=== PATIENT | female | born 2000 | race Caucasian/White ===

== ENCOUNTER 2020-08-29 11:59 | Observation (INO) | payer OTHER ==
[2020-08-29 12:40] LABS: Appearance CLOUDY (CLEAR); Bacteria MANY /HPF (NEGATIVE); Bilirubin NEGATIVE (NEGATIVE); Blood NEGATIVE Ery/ul (0-5); Epithelial Cells RARE /HPF (FEW); Glucose NEGATIVE (NEGATIVE); Ketones NEGATIVE (NEGATIVE); Leukocyte Esterase TRACE (NEGATIVE); Mucus MODERATE /HPF (NEGATIVE); Nitrite NEGATIVE (NEGATIVE); Protein,Urine Dip 30 (Negative); Urobilinogen 2 mg/dL (0-1)
[2020-08-29 13:09] VITALS: BP 130/76; PULSE 104; O2SAT 97
== END 2020-08-29 13:30 | disposition home or self-care (01) ==
LOC: OB 11:59
PROVIDERS: ADMIT Obstetrics & Gynecology; ATTEND Obstetrics & Gynecology
DX: O24.419 Gestational diabetes mellitus in pregnancy, unspecified control (principal); Z3A.32 32 weeks gestation of pregnancy
CPT/HCPCS: 59025; 81001; 87086; G0378

== ENCOUNTER 2020-09-01 15:40 | Observation (INO) | payer OTHER ==
[2020-09-01 16:18] VITALS: BP 135/70; PULSE 99
== END 2020-09-01 16:35 | disposition home or self-care (01) ==
LOC: MED SURG 15:40 → UNDOADMOB 15:40 → UNDODISOB 16:35
PROVIDERS: ADMIT Obstetrics & Gynecology; ATTEND Obstetrics & Gynecology
DX: O24.419 Gestational diabetes mellitus in pregnancy, unspecified control (principal); Z3A.32 32 weeks gestation of pregnancy
CPT/HCPCS: 59025; G0378

== ENCOUNTER 2020-09-05 11:29 | Observation (INO) | payer OTHER ==
[2020-09-05 15:52] VITALS: BP 129/79; PULSE 99
== END 2020-09-05 16:00 | disposition home or self-care (01) ==
LOC: OB 11:29 → UNDOADMOB 11:29 → OB 15:11
PROVIDERS: ADMIT Obstetrics & Gynecology; ATTEND Obstetrics & Gynecology
DX: O24.419 Gestational diabetes mellitus in pregnancy, unspecified control (principal); Z3A.33 33 weeks gestation of pregnancy
CPT/HCPCS: 59025; G0378

== ENCOUNTER 2020-09-08 15:53 | Observation (INO) | payer OTHER ==
[2020-09-08 16:31] VITALS: BP 132/79; PULSE 88
== END 2020-09-08 16:50 | disposition home or self-care (01) ==
LOC: OB 15:53
PROVIDERS: ADMIT Obstetrics & Gynecology; ATTEND Obstetrics & Gynecology
DX: O24.419 Gestational diabetes mellitus in pregnancy, unspecified control (principal); Z3A.33 33 weeks gestation of pregnancy
CPT/HCPCS: 59025; G0378

== ENCOUNTER 2020-09-12 09:14 | Observation (INO) | payer OTHER ==
[2020-09-12 10:08] VITALS: BP 115/67; PULSE 96
== END 2020-09-12 10:25 | disposition home or self-care (01) ==
LOC: OB 09:14
PROVIDERS: ADMIT Obstetrics & Gynecology; ATTEND Obstetrics & Gynecology
DX: O24.419 Gestational diabetes mellitus in pregnancy, unspecified control (principal); Z3A.34 34 weeks gestation of pregnancy
CPT/HCPCS: 59025; G0378

== ENCOUNTER 2020-09-15 10:05 | Observation (INO) | payer OTHER ==
[2020-09-15 10:58] VITALS: BP 130/78; PULSE 115; O2SAT 99
== END 2020-09-15 10:55 | disposition home or self-care (01) ==
LOC: OB 10:05
PROVIDERS: ADMIT Obstetrics & Gynecology; ATTEND Obstetrics & Gynecology
DX: O24.319 Unspecified pre-existing diabetes mellitus in pregnancy, unspecified trimester (principal)
CPT/HCPCS: 59025; G0378

== ENCOUNTER 2020-09-19 10:05 | Observation (INO) | payer OTHER ==
[2020-09-19 10:50] VITALS: PULSE 95
[2020-09-19 11:07] VITALS: BP 116/56
== END 2020-09-19 11:00 | disposition home or self-care (01) ==
LOC: OB 10:05
PROVIDERS: ADMIT Obstetrics & Gynecology; ATTEND Obstetrics & Gynecology
DX: O24.414 Gestational diabetes mellitus in pregnancy, insulin controlled (principal); Z3A.34 34 weeks gestation of pregnancy
CPT/HCPCS: 59025; G0378

== ENCOUNTER 2020-09-20 12:42 | Observation (INO) | payer OTHER ==
[2020-09-20 13:19] VITALS: BP 128/78; PULSE 113
[2020-09-20 13:39] LABS: Appearance SLIGHTLY CLOUDY (CLEAR); Bacteria FEW /HPF (NEGATIVE); Bilirubin NEGATIVE (NEGATIVE); Blood NEGATIVE Ery/ul (0-5); Epithelial Cells RARE /HPF (FEW); Glucose NEGATIVE (NEGATIVE); Ketones NEGATIVE (NEGATIVE); Leukocyte Esterase NEGATIVE (NEGATIVE); Mucus SLIGHT /HPF (NEGATIVE); Nitrite NEGATIVE (NEGATIVE); Protein,Urine Dip NEGATIVE (Negative); Specific Gravity 1.017 (1.005-1.025); Urobilinogen NEGATIVE mg/dL (0-1)
== END 2020-09-20 14:15 | disposition home or self-care (01) ==
LOC: OB 12:42
PROVIDERS: ADMIT Obstetrics & Gynecology; ATTEND Obstetrics & Gynecology
DX: O24.414 Gestational diabetes mellitus in pregnancy, insulin controlled (principal)
CPT/HCPCS: 81001; G0378

== ENCOUNTER 2020-09-22 15:44 | Observation (INO) | payer OTHER ==
[2020-09-22 16:23] VITALS: BP 122/68; PULSE 93; O2SAT 100
== END 2020-09-22 16:20 | disposition home or self-care (01) ==
LOC: OB 15:44
PROVIDERS: ADMIT General Practice; ATTEND General Practice
DX: O24.414 Gestational diabetes mellitus in pregnancy, insulin controlled (principal)
CPT/HCPCS: 59025; G0378

== ENCOUNTER 2020-09-26 10:11 | Observation (INO) | payer OTHER ==
[2020-09-26 10:38] VITALS: BP 123/68; PULSE 108; O2SAT 99
== END 2020-09-26 11:10 | disposition home or self-care (01) ==
LOC: OB 10:11
PROVIDERS: ADMIT Obstetrics & Gynecology; ATTEND Obstetrics & Gynecology
DX: O24.414 Gestational diabetes mellitus in pregnancy, insulin controlled (principal); Z3A.36 36 weeks gestation of pregnancy
CPT/HCPCS: 59025; G0378

== ENCOUNTER 2020-09-29 15:28 | Observation (INO) | payer OTHER ==
[2020-09-29 17:00] VITALS: BP 119/60; PULSE 93
== END 2020-09-29 16:50 | disposition home or self-care (01) ==
LOC: OB 15:28
PROVIDERS: ADMIT Obstetrics & Gynecology; ATTEND Obstetrics & Gynecology
DX: O24.414 Gestational diabetes mellitus in pregnancy, insulin controlled (principal); Z3A.36 36 weeks gestation of pregnancy
CPT/HCPCS: 59025; G0378

== ENCOUNTER 2020-10-03 10:02 | Observation (INO) | payer OTHER ==
[2020-10-03 10:59] VITALS: BP 132/83; PULSE 109; O2SAT 98
== END 2020-10-03 10:40 | disposition home or self-care (01) ==
LOC: OB 10:02
PROVIDERS: ADMIT Obstetrics & Gynecology; ATTEND Obstetrics & Gynecology
DX: O24.414 Gestational diabetes mellitus in pregnancy, insulin controlled (principal)
CPT/HCPCS: 59025; G0378

== ENCOUNTER 2020-10-06 15:36 | Observation (INO) | payer OTHER ==
[2020-10-06 16:25] VITALS: BP 129/81; PULSE 112; O2SAT 99
== END 2020-10-06 16:20 | disposition home or self-care (01) ==
LOC: OB 15:36
PROVIDERS: ADMIT Obstetrics & Gynecology; ATTEND Obstetrics & Gynecology
DX: Z34.83 Encounter for supervision of other normal pregnancy, third trimester (principal)
CPT/HCPCS: 59025; G0378

== ENCOUNTER 2020-10-10 10:04 | Observation (INO) | payer OTHER ==
[2020-10-10 10:58] VITALS: BP 123/69; PULSE 111
== END 2020-10-10 10:42 | disposition home or self-care (01) ==
LOC: OB 10:04
PROVIDERS: ADMIT Obstetrics & Gynecology; ATTEND Obstetrics & Gynecology
DX: O24.414 Gestational diabetes mellitus in pregnancy, insulin controlled (principal); Z3A.38 38 weeks gestation of pregnancy
CPT/HCPCS: 59025; G0378

== ENCOUNTER 2020-10-13 15:08 | Observation (INO) | payer OTHER ==
[2020-10-13 16:05] VITALS: BP 120/69; PULSE 108; O2SAT 98
== END 2020-10-13 15:55 | disposition home or self-care (01) ==
LOC: OB 15:08
PROVIDERS: ADMIT Obstetrics & Gynecology; ATTEND Obstetrics & Gynecology
DX: O24.414 Gestational diabetes mellitus in pregnancy, insulin controlled (principal)
CPT/HCPCS: 59025; G0378

== ENCOUNTER 2020-10-17 07:11 | Inpatient (IN) | payer OTHER ==
[~2020-10-17 07:11] MED LIST: Ephedrine Sulfate 50 MG/ML IV PRN; Lactated Ringers 1,000 ML IV ONE; Nubain 10 MG/ML IV PRN; OB EPIDURAL NAROPIN/SUFENTANIL IN NACL EPIDURAL PRN; OMNIPEN 2 GM*** 2 G in Sodium Chloride 100ML MINI-BAG PLUS 100 ML IV ONE; PITOCIN 30 UNITS/ LR 500 ML 30 UNITS/500 ML IV.SOLN. IV SCH; Phenergan 25 MG INJ IV PRN; STADOL 2 MG IV PRN; XYLOCAINE 1% HCL 20 ML MDV IJ PRN; Zofran 4 MG/2 ML VIAL IV PRN
[2020-10-17] MEDS ORDERED: ZITHROMAX IV ONE (07:12)
[2020-10-17 08:36] LABS: Amphetamine,Urine NEGATIVE (NEGATIVE); Barbiturate,Urine NEGATIVE (NEGATIVE); Benzodiazepine,Urine NEGATIVE (NEGATIVE); Cocaine,Urine NEGATIVE (NEGATIVE); Methadone,Urine NEGATIVE (NEGATIVE); Opiate,Urine NEGATIVE (NEGATIVE); PCP,Urine NEGATIVE (NEGATIVE); THC,Urine NEGATIVE (NEGATIVE)
[2020-10-17 09:04] LABS: Hematocrit 36.3 % (35-47); Hemoglobin 11.8 gm/dl (12.0-16.0); Mean Cell Volume 91.2 fl (78-100); Mean Corpuscular Hemoglobin 29.6 pg (26-32); Mean Corpuscular Hgb Concent. 32.5 g/dl (32-36); Mean Platelet Volume 9.4 fl (7.5-11.0); Platelet Count 249 K/mm3 (150-450); Red Blood Count 3.98 M/mm3 (4.1-5.4); Red Cell Distribution Width 15.7 % (11.5-14.0); White Blood Count 11.8 K/mm3 (4.0-10.5)
[2020-10-17] MEDS ORDERED: FLUZONE QUAD 2020-2021 SYRINGE IM ONE (09:24)
[2020-10-17] MEDS: TYLENOL EXTRA STRENGTH 500 MG PO PRN (21:24)
[2020-10-17] MEDS: Dextrose 5% -0.45 NaCl 1000 ML 1,000 ML IV SCH (22:05)
[2020-10-17] MEDS: Lactated Ringers 1,000 ML IV SCH (22:06)
[2020-10-18] MEDS ORDERED: Sodium Chloride 100ML MINI-BAG PLUS 100 ML IV ONE ×2 (03:07→06:55)
[2020-10-18] MEDS ORDERED: OMNIPEN 2 GM ONE (03:07)
[2020-10-18 04:32] LABS: Appearance CLEAR (CLEAR); Bilirubin NEGATIVE (NEGATIVE); Blood MODERATE Ery/ul (0-5); Epithelial Cells RARE /HPF (FEW); Glucose NEGATIVE (NEGATIVE); Ketones SMALL (NEGATIVE); Leukocyte Esterase NEGATIVE (NEGATIVE); Mucus SLIGHT /HPF (NEGATIVE); Nitrite NEGATIVE (NEGATIVE); Protein,Urine Dip NEGATIVE (Negative); RBC 0-2 /HPF (0-2); Specific Gravity 1.008 (1.005-1.025); Urobilinogen NEGATIVE mg/dL (0-1)
[2020-10-18] MEDS ORDERED: OMNIPEN 1 GM ONE (06:55)
[2020-10-18] MEDS ORDERED: OMNIPEN 1 GM IV SCH (07:00)
[2020-10-18] MEDS: Dextrose 5% -0.45 NaCl 1000 ML 1,000 ML IV SCH (07:03)
[2020-10-18] MEDS ORDERED: CORTISONE 1% CREAM TP PRN (08:22)
[2020-10-18] MEDS ORDERED: Dulcolax 10 MG SUPP PR PRN (08:22)
[2020-10-18] MEDS ORDERED: Anucort-HC SUPPOSITORY PR PRN (08:22)
[2020-10-18] MEDS ORDERED: BENADRYL 50 MG/ML IV PRN (08:22)
[2020-10-18] MEDS ORDERED: Dermoplast Spray TP PRN (08:22)
[2020-10-18] MEDS ORDERED: HOLD NARCOTIC ANALGESICS AND SEDATIVES X24 HR MC PRN (08:22)
[2020-10-18] MEDS ORDERED: Adacel Vial IM ONE (08:22)
[2020-10-18] MEDS ORDERED: MORPHINE SULFATE 2 MG INJ IV PRN (08:22)
[2020-10-18] MEDS ORDERED: CLARITIN 10 MG PO PRN (08:22)
[2020-10-18] MEDS ORDERED: SOD CITRATE-CITRIC ACID SOLN PO ONE (08:22)
[2020-10-18] MEDS ORDERED: LANSINOH 40 GM TOP PRN (08:22)
[2020-10-18] MEDS ORDERED: TUCKS TP PRN (08:22)
[2020-10-18] MEDS ORDERED: TYLENOL EXTRA STRENGTH 500 MG PO PRN (08:22)
[2020-10-18] MEDS ORDERED: Narcan 0.4 MG/ML IV PRN (08:22)
[2020-10-18] MEDS ORDERED: Mylicon 80MG PO PRN (08:22)
[2020-10-18] MEDS ORDERED: DEMEROL 50 MG IV PRN ×2 (08:22)
[2020-10-18] MEDS ORDERED: PERCOCET TABLET 5/325MG PO PRN (08:22)
[2020-10-18] MEDS ORDERED: Dextrose 5%-Lr IV Solution 1000 ML 1,000 ML IV SCH (08:30)
[2020-10-18] MEDS ORDERED: Reglan 10 MG/2 ML IV SCH ×2 (08:30→22:00)
[2020-10-18] MEDS ORDERED: Pepcid 20 MG VIAL IV SCH (08:30)
[2020-10-18] MEDS ORDERED: CEFAZOLIN 2 GM-D5W BAG** 2 GM/50 ML ML IV SCH ×2 (08:30→22:00)
[2020-10-18] MEDS ORDERED: Lactated Ringers 1,000 ML IV SCH (08:30)
--- NOTE | 2020-10-18 09:00 | XRAY ---
Indication: 39 weeks gestation. growth. History gestational diabetes. 2-dimensional OB ultrasound performed. Comparison: None There is a single viable intrauterine in cephalic presentation. heart rate 155 bpm. Posterior placenta. BPD measures 9.96 cm corresponding to 40 weeks 6 days. HC measures 35.30 cm corresponding to 41 weeks 2 days. AC measures 36.46 cm corresponding to 40 weeks 3 days. FL measures 7.91 cm corresponding to 40 weeks 3 days. RODOLFO is 9.6 cm. Impression: Single viable intrauterine with mean gestational age 40 weeks 5 days.
[2020-10-18 09:55] LABS: ABO TYPING B; Antibody Screen NEGATIVE (NEGATIVE); RH TYPING POSITIVE
[2020-10-18 09:58] LABS: INR 1.06 (0.8-3.0)
[2020-10-18] MEDS: Colace 100 MG PO SCH ×2 (10:00→21:16)
[2020-10-18] MEDS: FERREX 150 PO SCH (10:00)
[2020-10-18 10:01] LABS: PTT 24.1 SECONDS (25.3-37.0)
[2020-10-18] MEDS ORDERED: Astramorph-Pf 5 MG/10 ML ONE (10:54)
[2020-10-18] MEDS ORDERED: Methergine IV ONE (11:00)
[2020-10-18] MEDS ORDERED: TRANEXAMIC ACID IV ONE (11:00)
[2020-10-18] MEDS ORDERED: Hemabate IM ONE (11:00)
[2020-10-18] MEDS ORDERED: SODIUM CHLORIDE MINI IV ONE (11:00)
[2020-10-18] MEDS ORDERED: Compazine 10 MG/2 ML IV ONE (11:00)
[2020-10-18] MEDS ORDERED: EPINEPHRINE 1MG/ML AMP ONE (11:10)
[2020-10-18] MEDS ORDERED: Naropin 0.5% 30 ML VIAL ONE ×2 (11:10)
[2020-10-18] MEDS ORDERED: Pitocin 10 UNITS/ML ONE (11:45)
[2020-10-18] MEDS ORDERED: Lactated Ringers 1,000 ML IV ONE (11:52)
[2020-10-18 12:51] LABS: Hematocrit 31.9 % (35-47); Hemoglobin 10.4 gm/dl (12.0-16.0)
[2020-10-18] MEDS ORDERED: Reglan 10 MG/2 ML IV PRN (17:45)
[2020-10-18 18:54] LABS: Absolute Neutrophil Ct (ANC) 13.58 (1.4-6.9); BASOPHIL % 0.1 % (0.0-0.4); Basophil (Absolute #) 0.02 (0-0.4); Eosinophil % 0.2 % (0.00-5.0); Eosinophil (Absolute #) 0.04 (0-0.5); Hematocrit 30.1 % (35-47); Hemoglobin 9.9 gm/dl (12.0-16.0); Lymphocyte (Absolute #) 1.71 (1.0-4.6); Lymphocytes % 10.4 % (24.0-44.0); Mean Cell Volume 90.9 fl (78-100); Mean Corpuscular Hemoglobin 29.9 pg (26-32); Mean Corpuscular Hgb Concent. 32.9 g/dl (32-36); Mean Platelet Volume 9.2 fl (7.5-11.0); Monocyte (Absolute #) 1.16 (0.0-1.3); Neutrophil % 82.3 % (36.0-66.0); Platelet Count 241 K/mm3 (150-450); Red Blood Count 3.31 M/mm3 (4.1-5.4); Red Cell Distribution Width 15.5 % (11.5-14.0); White Blood Count 16.5 K/mm3 (4.0-10.5)
[2020-10-18] MEDS: TORAdol 30 mg Injection IV PRN (19:59)
[2020-10-18] MEDS: Sodium Chloride 0.9% 10 ML FLUSH Syringe IJ PRN (19:59)
[2020-10-18] MEDS: CEFAZOLIN 2 GM-D5W BAG** 2 GM/50 ML ML IV SCH ×2 (19:59→22:00)
[2020-10-18] MEDS: Lactated Ringers 1,000 ML IV SCH (21:16)
[2020-10-18] MEDS ORDERED: Mylicon 80MG PO SCH (22:00)
[2020-10-19] MEDS: TYLENOL EXTRA STRENGTH 500 MG PO PRN (00:12)
[2020-10-19] MEDS: Sodium Chloride 0.9% 10 ML FLUSH Syringe IJ PRN (01:59)
[2020-10-19] MEDS: TORAdol 30 mg Injection IV PRN (01:59)
[2020-10-19] MEDS: CEFAZOLIN 2 GM-D5W BAG** 2 GM/50 ML ML IV SCH (04:27)
[2020-10-19 05:57] LABS: Absolute Neutrophil Ct (ANC) 7.92 (1.4-6.9); BASOPHIL % 0.2 % (0.0-0.4); Basophil (Absolute #) 0.02 (0-0.4); Eosinophil % 0.4 % (0.00-5.0); Eosinophil (Absolute #) 0.04 (0-0.5); Hemoglobin 8.3 gm/dl (12.0-16.0); Lymphocytes % 15.4 % (24.0-44.0); Mean Cell Volume 92.2 fl (78-100); Mean Corpuscular Hemoglobin 29.4 pg (26-32); Mean Corpuscular Hgb Concent. 31.9 g/dl (32-36); Mean Platelet Volume 9.7 fl (7.5-11.0); Monocyte (Absolute #) 0.82 (0.0-1.3); Monocytes % 7.9 % (0.0-12.0); Neutrophil % 76.1 % (36.0-66.0); Platelet Count 186 K/mm3 (150-450); Red Blood Count 2.82 M/mm3 (4.1-5.4); Red Cell Distribution Width 15.5 % (11.5-14.0); White Blood Count 10.4 K/mm3 (4.0-10.5)
[2020-10-19] MEDS ORDERED: Ambien 10 MG PO PRN (08:22)
[2020-10-19] MEDS: FERREX 150 PO SCH ×3 (09:04→22:41)
[2020-10-19] MEDS: ENOXAPARIN SODIUM SQ SCH (09:04)
[2020-10-19] MEDS: MOTRIN 400 MG PO PRN ×3 (09:06→23:58)
[2020-10-19] MEDS: Colace 100 MG PO SCH ×2 (09:06→22:41)
--- NOTE | 2020-10-19 09:15 | OP ---
SURGERY DATE/TIME: 10/18/2020 1046 PREOPERATIVE DIAGNOSIS: Intrauterine at 39 weeks and 1 day's gestation with gestational diabetes with suspected macrosomia, declined trial of labor. POSTOPERATIVE DIAGNOSIS: Intrauterine at 39 weeks and 1 day's gestation with gestational diabetes with suspected macrosomia, declined trial of labor. Nuchal cord x1 and uterine atony. PROCEDURE: Primary section with low flap transverse uterine incision, Pfannenstiel skin incision. SURGEON: Jason Patrick D.O. SPINE SPECIALIST: Jesse Reid, surgical techs. ANESTHESIA: Epidural. ESTIMATED BLOOD LOSS: 1000 cc. COMPLICATIONS: None. INDICATIONS: The risks, benefits, indications and alternatives of the procedure were reviewed with the patient prior to procedure. The patient understood the risk of infection, bleeding, bowel injury, bladder injury, ureteral injury, incisional hernia as well as pelvic infection and thromboembolic disorder associated with this procedure however desires to have this surgery as a possible means to alleviate her current medical condition. DESCRIPTION OF PROCEDURE AND FINDINGS: At this point the patient is taken to the operating room where her epidural anesthesia was found to adequate. She was then prepped and draped in normal sterile fashion in the dorsal supine position with leftward tilt. A Pfannenstiel skin incision is made with a scalpel and carried through to the underlying layer of the fascia with Bovie. The fascia was then incised in the midline and the incision extended laterally with bandage scissors. The superior aspect of the fascial incision was then grasped Sidney clamps elevated and the underlying rectus muscles dissected off bluntly. Attention is then turned to the inferior aspect of this incision which in similar fashion was grasped, tented up with Sidney clamps and the rectus muscles dissected off bluntly. The rectus muscles were then at the midline and the peritoneum identified, tented up and entered sharply with Metzenbaum scissors. The peritoneum incision was then extended superiorly and inferiorly with good visualization of the bladder. The bladder blade was then inserted and the vesicouterine peritoneum identified, grasped with a pickup and entered sharply with Metzenbaum scissors. This incision was then extended laterally and bladder flap created digitally. The bladder blade was then re-inserted and the lower uterine segment incised in transverse fashion with a scalpel. The uterine incision was then extended laterally with bandage scissors. The bladder blade was then removed. The infant's head was delivered atraumatically which was noted to have a nuchal cord x1 which was reduced. The nose and mouth were suctioned with bulb suction and the cord clamped and cut. The was then handed off to the awaiting nurses. The placenta was then removed manually. The uterus exteriorized and cleared of all clots and debris. The uterine incision was repaired with 1-0 chromic in a running locked fashion. A second layer of the same suture was used to obtain excellent hemostasis. From this point it was noted that the patient was having uterine atony where Pitocin had been given. 1 gm of tranexamic acid was given, 0.2 mg of Methergine was given and 0.25 mg Hemabate was given within the myometrium of the uterus and after the dose of Hemabate the uterus started clamping down with less bleeding that was noted. From this point the uterus is then returned to the abdomen. The gutters were cleared of clots and the peritoneum muscles closed in interrupted fashion using 2-0 chromic suture. The fascia was reapproximated with 0 Vicryl in running fashion. The subcutaneous layer was closed with 3-0 Vicryl suture and the skin was closed with absorbable suejy called INSORB. The patient tolerated the procedure well. Sponge, lap, needle and instrument counts were correct x2. The patient had delivered a live baby girl at 1104 hours. 's were 8 at 1 minute and 9 at 5 minutes and the weight of the baby was 9 pounds 0 ounce.
[2020-10-19] MEDS ORDERED: ENOXAPARIN SODIUM SQ SCH (10:00)
[2020-10-19] MEDS: NORCO 5/325 MG PO PRN ×2 (14:03→22:41)
--- NOTE | 2020-10-19 16:45 | PCM.DS ---
Discharge Summary Date of Admission: 10/17/20 07:11 Admitting Physician: NICK CHO DO Consults: Consults on Case 10/18/20 08:22 Notify Anesthesia Provider ROUTINE Primary Care Provider: BRANDON,GLORIA Allergies Allergies erythromycin base [Erythromycin Base] Allergy (Intermediate, Verified 09/29/20 15:53) Hives Sulfa (Sulfonamide Antibiotics) Allergy (Intermediate, Verified 09/29/20 15:53) [facility] Summary - Vitals & Intake/Output Vital Signs: Vital Signs Temperature 97.8 F 10/19/20 00:00 Pulse Rate 103 H 10/19/20 00:00 Respiratory Rate 20 10/19/20 00:00 Blood Pressure 109/56 10/19/20 00:00 O2 Sat by Pulse Oximetry 99 10/19/20 09:00 Intake & Output: Intake & Output 10/17/20 10/18/20 10/19/20 10/20/20 11:59 11:59 11:59 11:59 Intake Total 3600 3583 Output Total 1100 1650 Balance 2500 1933 Weight 116.12 kg 116.12 kg - Lab Result Diagrams: 10/19/20 04:25 Lab Results-Last 24 Hrs: Lab Results-Last 24 Hours 10/18/20 10/18/20 10/18/20 Range/Units 17:38 18:50 21:11 WBC 16.5 H (4.0-10.5) K/mm3 RBC 3.31 L (4.1-5.4) M/mm3 Hgb 9.9 L (12.0-16.0) gm/dl Hct 30.1 L (35-47) % MCV 90.9 (78-100) fl MCH 29.9 (26-32) pg MCHC 32.9 (32-36) g/dl RDW 15.5 H (11.5-14.0) % Plt Count 241 (150-450) K/mm3 MPV 9.2 (7.5-11.0) fl Gran % 82.3 H (36.0-66.0) % Eos # (Auto) 0.04 (0-0.5) Absolute Lymphs (auto) 1.71 (1.0-4.6) Absolute Monos (auto) 1.16 (0.0-1.3) Lymphocytes % 10.4 L (24.0-44.0) % Monocytes % 7.0 (0.0-12.0) % Eosinophils % 0.2 (0.00-5.0) % Basophils % 0.1 (0.0-0.4) % Absolute Granulocytes 13.58 H (1.4-6.9) Basophils # 0.02 (0-0.4) POC Glucometer 91 106 (74 to 106) mg/dL 10/19/20 10/19/20 10/19/20 Range/Units 01:20 04:25 06:05 WBC 10.4 (4.0-10.5) K/mm3 RBC 2.82 L (4.1-5.4) M/mm3 Hgb 8.3 L (12.0-16.0) gm/dl Hct 26.0 L (35-47) % MCV 92.2 (78-100) fl MCH 29.4 (26-32) pg MCHC 31.9 L (32-36) g/dl RDW 15.5 H (11.5-14.0) % Plt Count 186 (150-450) K/mm3 MPV 9.7 (7.5-11.0) fl Gran % 76.1 H (36.0-66.0) % Eos # (Auto) 0.04 (0-0.5) Absolute Lymphs (auto) 1.60 (1.0-4.6) Absolute Monos (auto) 0.82 (0.0-1.3) Lymphocytes % 15.4 L (24.0-44.0) % Monocytes % 7.9 (0.0-12.0) % Eosinophils % 0.4 (0.00-5.0) % Basophils % 0.2 (0.0-0.4) % Absolute Granulocytes 7.92 H (1.4-6.9) Basophils # 0.02 (0-0.4) POC Glucometer 97 104 (74 to 106) mg/dL 10/19/20 Range/Units 14:10 WBC (4.0-10.5) K/mm3 RBC (4.1-5.4) M/mm3 Hgb (12.0-16.0) gm/dl Hct (35-47) % MCV (78-100) fl MCH (26-32) pg MCHC (32-36) g/dl RDW (11.5-14.0) % Plt Count (150-450) K/mm3 MPV (7.5-11.0) fl Gran % (36.0-66.0) % Eos # (Auto) (0-0.5) Absolute Lymphs (auto) (1.0-4.6) Absolute Monos (auto) (0.0-1.3) Lymphocytes % (24.0-44.0) % Monocytes % (0.0-12.0) % Eosinophils % (0.00-5.0) % Basophils % (0.0-0.4) % Absolute Granulocytes (1.4-6.9) Basophils # (0-0.4) POC Glucometer 121 H (74 to 106) mg/dL Micro Results-Entire Visit: Microbiology 10/18/20 03:00 Urine Culture - Final Urine, Catheterized NO GROWTH Accuchecks Date 10/19/20 Date 10/19/20 Date 10/18/20 Date 10/18/20 Time 06:00 Time 01:20 Time 21:10 Time 17:30 - Radiology Exams Ordered Rad Exams-Entire Visit: Radiology Procedures Category Date Time Status OB LIMITED [US] Routine Exams 10/18/20 08:00 Completed - Discharge Discharge Date: 10/20/20 Disposition: Home, Self-Care Condition: Stable Prescriptions: New Ferrous Sulfate [Feratab] 300 mg PO BID #60 tablet Hydrocodone/Ibuprofen [Hydrocodone-Ibuprofen 5-200 mg] 1 each PO Q4-6HPRN PRN #30 tablet MDD 4 PRN Reason: Pain Ibuprofen 600 mg PO Q6HPRN PRN #60 tablet MDD 4 PRN Reason: Pain Continue Vits W-Ca,Fe,FA(<1Mg) [] 1 each PO HS Discontinued Insulin Lispro [Humalog Kwikpen] 9 unit SQ DAILY Aspirin 81 gm Chew [Baby Aspirin 81 mg Chew] 81 mg PO DAILY Follow up with: GLORIA TAYLOR MD [Primary Care Provider] - NICK CHO DO [ACTIVE STAFF] - 2 weeks
[2020-10-20] MEDS: NORCO 5/325 MG PO PRN ×2 (03:00→10:29)
[2020-10-20 05:42] LABS: Absolute Neutrophil Ct (ANC) 3.97 (1.4-6.9); BASOPHIL % 0.3 % (0.0-0.4); Basophil (Absolute #) 0.02 (0-0.4); Eosinophil % 1.9 % (0.00-5.0); Eosinophil (Absolute #) 0.13 (0-0.5); Hematocrit 24.4 % (35-47); Hemoglobin 7.7 gm/dl (12.0-16.0); Lymphocyte (Absolute #) 2.15 (1.0-4.6); Lymphocytes % 30.9 % (24.0-44.0); Mean Cell Volume 94.9 fl (78-100); Mean Corpuscular Hgb Concent. 31.6 g/dl (32-36); Mean Platelet Volume 9.6 fl (7.5-11.0); Monocyte (Absolute #) 0.68 (0.0-1.3); Monocytes % 9.8 % (0.0-12.0); Neutrophil % 57.1 % (36.0-66.0); Platelet Count 198 K/mm3 (150-450); Red Blood Count 2.57 M/mm3 (4.1-5.4); Red Cell Distribution Width 15.8 % (11.5-14.0)
[2020-10-20] MEDS: MOTRIN 400 MG PO PRN (05:50)
[2020-10-20] MEDS: ENOXAPARIN SODIUM SQ SCH (09:59)
[2020-10-20] MEDS: Colace 100 MG PO SCH (10:10)
[2020-10-20] MEDS: FERREX 150 PO SCH (10:11)
--- NOTE | 2020-10-20 11:29 | PCM.DS ---
Discharge Summary Date of Admission: 10/17/20 07:11 Date of Discharge: 10/20/20 Admitting Physician: NICK CHO DO Consults: Consults on Case 10/18/20 08:22 Notify Anesthesia Provider ROUTINE Primary Care Provider: BRANDON,GLORIA Allergies Allergies erythromycin base [Erythromycin Base] Allergy (Intermediate, Verified 09/29/20 15:53) [facility] Sulfa (Sulfonamide Antibiotics) Allergy (Intermediate, Verified 09/29/20 15:53) [facility] Summary - Hospital Course Hospital Course: pt is a 19 yo at 39 wks admitted for induction with hx of gestational diabetes on insulin therapy. had been on insulin 18 units am and 26 units pm prior to admission. pt upon admission was 1 cm dilated 60/-2/vtx/intact. pt had received 6 dose of cytotec for induction and in the am of oct 18 an ultras ound was done to determine efw for which came back at 9 pounds. risks and benefits for continued induction vs csection was discussed with pt and pt opted for csection given the risks for further induction. pt subsequently delivered live baby girl on oct 18 and was noted having uterine atony during csection and was given tranexamic acid 1 gm as well as methergine and hemabate which had slowed down her bleeding. her estimated blood loss was a liter. during postop period pt did well and her glucose remained in the stable normal range throughout her stay. pt had a stable hgb of 7.7 at time of discharge and was instructed to continue iron therapy tid. pt was also given a prescription for norco for pain managmenet. all questions answered to her satisfaction and was advised to fu in office in 2 wks. - Vitals & Intake/Output Vital Signs: Vital Signs Temperature 98.0 F 10/20/20 02:00 Pulse Rate 105 H 10/19/20 20:00 Respiratory Rate 20 10/20/20 02:00 Blood Pressure 107/56 10/19/20 20:00 O2 Sat by Pulse Oximetry 99 10/19/20 20:00 Intake & Output: Intake & Output 10/17/20 10/18/20 10/19/20 10/20/20 11:59 11:59 11:59 11:59 Intake Total 3600 3583 1100 Output Total 1100 1650 3 Balance 2500 1933 1097 Weight 116.12 kg 116.12 kg - Lab Result Diagrams: 10/20/20 04:20 Lab Results-Last 24 Hrs: Lab Results-Last 24 Hours 10/19/20 10/20/20 10/20/20 Range/Units 14:10 04:20 06:49 WBC 7.0 (4.0-10.5) K/mm3 RBC 2.57 L (4.1-5.4) M/mm3 Hgb 7.7 L (12.0-16.0) gm/dl Hct 24.4 L (35-47) % MCV 94.9 (78-100) fl MCH 30.0 (26-32) pg MCHC 31.6 L (32-36) g/dl RDW 15.8 H (11.5-14.0) % Plt Count 198 (150-450) K/mm3 MPV 9.6 (7.5-11.0) fl Gran % 57.1 (36.0-66.0) % Eos # (Auto) 0.13 (0-0.5) Absolute Lymphs (auto) 2.15 (1.0-4.6) Absolute Monos (auto) 0.68 (0.0-1.3) Lymphocytes % 30.9 (24.0-44.0) % Monocytes % 9.8 (0.0-12.0) % Eosinophils % 1.9 (0.00-5.0) % Basophils % 0.3 (0.0-0.4) % Absolute Granulocytes 3.97 (1.4-6.9) Basophils # 0.02 (0-0.4) POC Glucometer 121 H 76 (74 to 106) mg/dL Micro Results-Entire Visit: Microbiology 10/18/20 03:00 Urine Culture - Final Urine, Catheterized NO GROWTH Accuchecks Date 10/20/20 Date 10/19/20 Date 10/19/20 Time 06:51 Time 06:00 Time 14:00 Final Diagnosis/Problem List - Final Discharge Diagnosis/Problem (1) delivery delivered Current Visit: Yes Status: Acute Code(s): O82 - ENCOUNTER FOR DELIVERY WITHOUT INDICATION (2) Gestational diabetes Current Visit: Yes Status: Acute Code(s): O24.419 - GESTATIONAL DIABETES M ELLITUS IN , UNSP CONTROL (3) macrosomia during Current Visit: Yes Status: Acute Code(s): O36.60X0 - MATERNAL CARE FOR EXCESS GROWTH, UNSP TRIMESTER, UNSP - Discharge Disposition: Home, Self-Care Condition: Stable Prescriptions: New Ferrous Sulfate [Feratab] 300 mg PO BID #60 tablet Hydrocodone/Ibuprofen [Hydrocodone-Ibuprofen 5-200 mg] 1 each PO Q4-6HPRN PRN #30 tablet MDD 4 PRN Reason: Pain Ibuprofen 600 mg PO Q6HPRN PRN #60 tablet MDD 4 PRN Reason: Pain Continue Vits W-Ca,Fe,FA(<1Mg) [] 1 each PO HS Discontinued Insulin Lispro [Humalog Kwikpen] 9 unit SQ DAILY Aspirin 81 gm Chew [Baby Aspirin 81 mg Chew] 81 mg PO DAILY Follow up with: NICK CHO DO [ACTIVE STAFF] - 2 weeks
--- NOTE | 2020-10-20 11:32 | PCM.NOTE ---
Date and Time: 10/20/20 1131 Subjective Assessment: pod 2 pt doing well today per nursing staff without issues. able to tolerate diet and ambulate. vss afebrile abd; incision c/d/intact per nursing assessment a/p sp csection pod 2 dc home today should fu in office in 2 wks OBJECTIVE DATA Vital Signs: Vital Signs - 24 hr Temp Pulse Resp BP Pulse Ox 10/20/20 02:00 98.0 F 20 10/19/20 20:00 98.0 F 105 H 20 107/56 99 10/19/20 14:00 98.5 F 101 H 20 104/51 97 Pain Assessment - Last Documented Pain Intensity [Anterior/ 4 Posterior] Pain Intensity 5 Pain Scale Used 0-10 Pain Scale Intake and Output: Intake & Output 10/17/20 10/18/20 10/19/20 10/20/20 11:59 11:59 11:59 11:59 Intake Total 3600 3583 1100 Output Total 1100 1650 3 Balance 2500 1933 1097 Weight 116.12 kg 116.12 kg Lab Results: Lab Results-Last 24 Hours 10/19/20 10/20/20 10/20/20 Range/Units 14:10 04:20 06:49 WBC 7.0 (4.0-10.5) K/mm3 RBC 2.57 L (4.1-5.4) M/mm3 Hgb 7.7 L (12.0-16.0) gm/dl Hct 24.4 L (35-47) % MCV 94.9 (78-100) fl MCH 30.0 (26-32) pg MCHC 31.6 L (32-36) g/dl RDW 15.8 H (11.5-14.0) % Plt Count 198 (150-450) K/mm3 MPV 9.6 (7.5-11.0) fl Gran % 57.1 (36.0-66.0) % Eos # (Auto) 0.13 (0-0.5) Absolute Lymphs (auto) 2.15 (1.0-4.6) Absolute Monos (auto) 0.68 (0.0-1.3) Lymphocytes % 30.9 (24.0-44.0) % Monocytes % 9.8 (0.0-12.0) % Eosinophils % 1.9 (0.00-5.0) % Basophils % 0.3 (0.0-0.4) % Absolute Granulocytes 3.97 (1.4-6.9) Basophils # 0.02 (0-0.4) POC Glucometer 121 H 76 (74 to 106) mg/dL Assessment/Plan (1) delivery delivered Current Visit: Yes Status: Acute Code(s): O82 - ENCOUNTER FOR DELIVERY WITHOUT INDICATION (2) Gestational diabetes Current Visit: Yes Status: Acute Code(s): O24.419 - GESTATIONAL DIABETES MELLITUS IN , UNSP CONTROL (3) macrosomia during Current Visit: Yes Status: Acute Code(s): O36.60X0 - MATERNAL CARE FOR EXCESS GROWTH, UNSP TRIMESTER, UNSP
[2020-10-20 14:52] VITALS: BP 104/51; PULSE 99; O2SAT 97
== END 2020-10-20 13:35 | disposition home or self-care (01) | DRG 788 ==
LOC: UNDOADMOB 07:11 → INTOOBSV 07:11 → OB 07:11 → OBSVTOIN 07:11
PROVIDERS: ADMIT Obstetrics & Gynecology; ATTEND Obstetrics & Gynecology
PROC: 10D00Z1 Extraction of Products of Conception, Low, Open Approach (ICD-10-PCS; principal; 2020-10-18)
DX: O24.424 Gestational diabetes mellitus in childbirth, insulin controlled (principal); O36.63X0 Maternal care for excessive fetal growth, third trimester, not applicable or unspecified; O62.2 Other uterine inertia; Z3A.39 39 weeks gestation of pregnancy; Z37.0 Single live birth
CPT/HCPCS: 36415; 62322; 64488; 76815; 76937; 76942; 80307; 81001; 82947; 85014; 85018; 85025; 85027; 85610; 85730; 86850; 86900; 86901; 87086; 87340; 88307; 90471; 90472; 90686; 90715; 94799; G0008; G0378; J0171; J0290; J0456; J0690; J1330; J1650; J1885; J2274; J2405; J2590; J2795; L0625; A9270-GY

== ENCOUNTER 2020-12-08 13:15 | Emergency (ER) | payer OTHER ==
[2020-12-08] MEDS ORDERED: Sodium Chloride 0.9% 1000 ML 1,000 ML IV STA ×2 (13:56→16:46)
[2020-12-08] MEDS ORDERED: Hydromorphone 1 mg/ml Injection IV ONE (13:56)
[2020-12-08] MEDS ORDERED: Zofran 4 MG/2 ML VIAL IV ONE (13:56)
--- NOTE | 2020-12-08 13:56 | ERPHSYRPT ---
- History of Present Illness Time Seen by Provider: 12/08/20 13:40 Historian: patient Exam Limitations: no limitations Patient Subjective Stated Complaint: abd pain Triage Nursing Assessment: pt to ED c/o abd pain onset yesterday morning that eased with meds. back again yesterday evening but woke with pain again this morning. pt states she then again took meds with some relief. reports her mother wishes her to come in d/t her eyes looking discolored and recent hx of c section 7 weeks ago. Physician History: This is a morbidly obese 20-year-old white female who yesterday morning began having some epigastric abdominal pain followed by generalized abdominal pain. It was described as an ache and pressure and then began came intermittently sharp and diffuse. She has had nausea but no vomiting. She had no diarrhea symptoms. She denies chest pain. She denies shortness of breath. She has noticed some dark urine. She also noticed that family members told her that her skin and whites of her eyes appeared yellow. He does feel bloated belching gassy. Because of her persistent, intermittent symptoms she came to the emergency department for evaluation. Timing/Duration: yesterday Activities at Onset: none Quality: aching, sharpness Abdominal Pain Onset Location: epigastric, generalized abdomen Severity of Pain-Max: moderate Severity of Pain-Current: mild Modifying Factors: Improves With: nothing Associated Symptoms: nausea (With the severe pain episodes), No chest pain, No shortness of breath, No vomiting Allergies/Adverse Reactions: erythromycin base [Erythromycin Base] Allergy (Intermediate, Verified 12/08/20 13:31) Hives Sulfa (Sulfonamide Antibiotics) Allergy (Intermediate, Verified 12/08/20 13:31) Hives Home Medications: No Reportable Medications [No Reported Medications] 12/08/20 [History] Hx Tetanus, Diphtheria Vaccination/Date Given: Yes Hx Influenza Vaccination/Date Given: Yes Hx Pneumococcal Vaccination/Date Given: No Immunizations Up to Date: Yes Travel Risk - International Travel Have you traveled outside of the country in past 3 weeks: No - Coronavirus Screening Are you exhibiting any of the following symptoms?: No Close contact with a COVID-19 positive Pt in past 14-21 Days: No - Review of Systems Constitutional: No Symptoms Eyes: No Symptoms Ears, Nose, & Throat: No Symptoms Respiratory: No Symptoms Cardiac: No Symptoms Abdominal/Gastrointestinal: Abdominal Pain, Nausea, No Vomiting, No Diarrhea, No Constipation Genitourinary Symptoms: No Symptoms Musculoskeletal: No Symptoms Skin: No Symptoms Neurological: No Symptoms Psychological: No Symptoms Endocrine: No Symptoms Hematologic/Lymphatic: No Symptoms Immunological/Allergic: No Symptoms All Other Systems: Reviewed and Negative - Past Medical History Pertinent Past Medical History: No Neurological History: No Pertinent History ENT History: No Pertinent History Cardiac History: No Pertinent History Respiratory History: No Pertinent History Endocrine Medical History: No Pertinent History Musculoskeletal History: No Pertinent History GI Medical History: No Pertinent History History: No Pertinent History Psycho-Social History: No Pertinent History Female Reproductive Disorders: No Pertinent History Other Medical History: gestational diabetes - Past Surgical History Past Surgical History: Yes Neuro Surgical History: No Pertinent History Cardiac: No Pertinent History Respiratory: No Pertinent History Gastrointestinal: No Pertinent History Genitourinary: No Pertinent History Musculoskeletal: No Pertinent History Female Surgical History: Section Other Surgical History: татьяна - Social History Smoking Status: Never smoker Exposure to second hand smoke: No Drug Use: none Patient Lives Alone: No - Female History Hx Last Menstrual Period: last week Hx Now: No - Nursing Vital Signs Nursing Vital Signs: Initial Vital Signs Temperature 98.4 F 12/08/20 13:23 Pulse Rate 105 H 12/08/20 13:23 Respiratory Rate 18 12/08/20 13:23 Blood Pressure 136/92 12/08/20 13:23 O2 Sat by Pulse Oximetry 99 12/08/20 13:23 Pain Scale Pain Intensity 3 - Physical Exam General Appearance: no apparent distress, alert, anxiety, obese Eye Exam: PERRL/EOMI, eyes nml inspection Ears, Nose, Throat Exam: normal ENT inspection, moist mucous membranes Neck Exam: normal inspection, non-tender, supple, full range of motion Respiratory Exam: normal breath sounds, lungs clear, airway intact, No chest tenderness, No respiratory distress Cardiovascular Exam: regular rate/rhythm, normal heart sounds, normal peripheral pulses Gastrointestinal/Abdomen Exam: soft, normal bowel sounds, tenderness (Mild epigastric), No guarding ( with palpation), No rebound Pelvic Exam: not done Rectal Exam: not done Back Exam: normal inspection, normal range of motion, No CVA tenderness, No vertebral tenderness Extremity Exam: normal inspection, normal range of motion, pelvis stable Neurologic Exam: alert, oriented x 3, cooperative, soil sort worker II-XII nml as tested, normal mood/affect, nml cerebellar function, nml station & gait, sensation nml Skin Exam: normal color, warm, dry Lymphatic Exam: No adenopathy SpO2 Interpretation: normal SpO2: 99 O2 Delivery: Room Air - Course Nursing assessment & vital signs reviewed: Yes Ordered Tests: Active Orders 24 hr Category Date Time Status IV Insertion STAT Care 12/08/20 13:56 Active ABDOMEN AND PELVIS W/0 CONTRAS [CT] Stat Exams 12/08/20 13:56 Completed AMYLASE Stat Lab 12/08/20 14:08 Completed CBC W DIFF Stat Lab 12/08/20 14:08 Completed CMP Stat Lab 12/08/20 14:08 Completed CULTURE,URINE Stat Lab 12/08/20 14:08 Received HCG,QUALITATIVE URINE Stat Lab 12/08/20 14:08 Completed LIPASE Stat Lab 12/08/20 14:08 Completed Lactic Acid Stat Lab 12/08/20 13:56 Completed UA W/RFX UR CULTURE Stat Lab 12/08/20 14:08 Completed Medication Summary Generic Name Dose Route Start Last Admin Trade Name Freq PRN Reason Stop Dose Admin Lactated Ringer's 1,000 mls @ 999 mls/hr 12/08/20 16:48 12/08/20 16:54 Lactated Ringers IV 12/08/20 17:48 999 mls/hr .Q1H1M ONE Administration Discontinued Medications Generic Name Dose Route Start Last Admin Trade Name Freq PRN Reason Stop Dose Admin Hydromorphone HCl 0.5 mg 12/08/20 13:56 12/08/20 14:14 Hydromorphone 1 Mg/Ml Injection IV 12/08/20 13:57 0.5 mg STAT ONE Administration Hydromorphone HCl Confirm 12/08/20 14:06 Hydromorphone 1 Mg/Ml Injection Administered 12/08/20 14:07 Dose 1 mg .ROUTE .STK-MED ONE Sodium Chloride 1,000 mls @ 999 mls/hr 12/08/20 13:56 12/08/20 15:40 Sodium Chloride 0.9% 1000 Ml IV 12/08/20 14:56 Infused .Q1H1M STA Infusion Sodium Chloride Confirm 12/08/20 14:06 Sodium Chloride 0.9% 1000 Ml Administered 12/08/20 14:07 Dose 1,000 mls @ ud .ROUTE .STK-MED ONE Levofloxacin/Dextrose 500 mg in 100 mls @ 100 mls/hr 12/08/20 15:40 12/08/20 15:47 Levofloxacin 500mg/100ml D5w IV 12/08/20 16:39 100 mls/hr STAT STA 100 mls/hr Administration Levofloxacin/Dextrose Confirm 12/08/20 15:44 Levofloxacin 500mg/100ml D5w Administered 12/08/20 15:45 Dose 500 mg in 100 mls @ ud IV .STK-MED ONE Sodium Chloride 1,000 mls @ 999 mls/hr 12/08/20 16:46 Sodium Chloride 0.9% 1000 Ml IV 12/08/20 17:46 .Q1H1M STA Lactated Ringer's Confirm 12/08/20 16:51 Lactated Ringers Administered 12/08/20 16:52 Dose 1,000 mls @ ud IV .STK-MED ONE Ondansetron HCl 4 mg 12/08/20 13:56 12/08/20 14:12 Zofran 4 Mg/2 Ml Vial IV 12/08/20 13:57 4 mg STAT ONE Administration Ondansetron HCl Confirm 12/08/20 14:04 Zofran 4 Mg/2 Ml Vial Administered 12/08/20 14:05 Dose 4 mg .ROUTE .STK-MED ONE Lab/Rad Data: Laboratory Result Diagrams 12/08/20 14:08 12/08/20 14:08 Laboratory Results 12/08/20 12/08/20 12/08/20 Range/Units 14:08 14:08 14:08 WBC 10.2 (4.0-10.5) K/mm3 RBC 4.72 (4.1-5.4) M/mm3 Hgb 12.4 (12.0-16.0) gm/dl Hct 40.1 (35-47) % MCV 85.0 (78-100) fl MCH 26.3 (26-32) pg MCHC 30.9 L (32-36) g/dl RDW 13.3 (11.5-14.0) % Plt Count 378 (150-450) K/mm3 MPV 9.7 (7.5-11.0) fl Gran % 78.9 H (36.0-66.0) % Eos # (Auto) 0.17 (0-0.5) Absolute Lymphs (auto) 1.41 (1.0-4.6) Absolute Monos (auto) 0.55 (0.0-1.3) Lymphocytes % 13.8 L (24.0-44.0) % Monocytes % 5.4 (0.0-12.0) % Eosinophils % 1.7 (0.00-5.0) % Basophils % 0.2 (0.0-0.4) % Absolute Granulocytes 8.07 H (1.4-6.9) Basophils # 0.02 (0-0.4) Sodium 137 (137-145) mmol/L Potassium 3.6 (3.5-5.1) mmol/L Chloride 102 (98-107) mmol/L Carbon Dioxide 25 (22-30) mmol/L Anion Gap 13.9 (5-15) MEQ/L BUN 10 (7-17) mg/dL Creatinine 0.88 (0.52-1.04) mg/dL Estimated GFR > 60.0 ML/MIN Glucose 135 H (74-106) mg/dL Lactic Acid (0.4-2.0) Calcium 9.6 (8.4-10.2) mg/dL Total Bilirubin 2.00 H (0.2-1.3) mg/dL AST 680 H (14-36) U/L ALT 731 H (0-35) U/L Alkaline Phosphatase 207 H (38-126) U/L Serum Total Protein 7.9 (6.3-8.2) g/dL Albumin 4.5 (3.5-5.0) g/dL Amylase 416 H (30-110) U/L Lipase 1492 H (23-300) U/L Urine Color (YELLOW) Urine Appearance (CLEAR) Urine pH (5-6) Ur Specific [place] (1.005-1.025) Urine Protein (Negative) Urine Ketones (NEGATIVE) Urine Blood (0-5) Dequan/ul Urine Nitrite (NEGATIVE) Urine Bilirubin (NEGATIVE) Urine Urobilinogen (0-1) mg/dL Ur Leukocyte Esterase (NEGATIVE) Urine WBC (Auto) (0-5) /HPF Urine RBC (Auto) (0-2) /HPF U Epithel Cells (Auto) (FEW) /HPF Urine Bacteria (Auto) (NEGATIVE) /HPF Urine Mucus (Auto) (NEGATIVE) /HPF Urine Culture Reflexed (NO) Urine Glucose (NEGATIVE) mg/dL Urine HCG, Qual NEGATIVE (Negative) 12/08/20 12/08/20 Range/Units 14:08 13:56 WBC (4.0-10.5) K/mm3 RBC (4.1-5.4) M/mm3 Hgb (12.0-16.0) gm/dl Hct (35-47) % MCV (78-100) fl MCH (26-32) pg MCHC (32-36) g/dl RDW (11.5-14.0) % Plt Count (150-450) K/mm3 MPV (7.5-11.0) fl Gran % (36.0-66.0) % Eos # (Auto) (0-0.5) Absolute Lymphs (auto) (1.0-4.6) Absolute Monos (auto) (0.0-1.3) Lymphocytes % (24.0-44.0) % Monocytes % (0.0-12.0) % Eosinophils % (0.00-5.0) % Basophils % (0.0-0.4) % Absolute Granulocytes (1.4-6.9) Basophils # (0-0.4) Sodium (137-145) mmol/L Potassium (3.5-5.1) mmol/L Chloride (98-107) mmol/L Carbon Dioxide (22-30) mmol/L Anion Gap (5-15) MEQ/L BUN (7-17) mg/dL Creatinine (0.52-1.04) mg/dL Estimated GFR ML/MIN Glucose (74-106) mg/dL Lactic Acid 1.4 (0.4-2.0) Calcium (8.4-10.2) mg/dL Total Bilirubin (0.2-1.3) mg/dL AST (14-36) U/L ALT (0-35) U/L Alkaline Phosphatase (38-126) U/L Serum Total Protein (6.3-8.2) g/dL Albumin (3.5-5.0) g/dL Amylase (30-110) U/L Lipase (23-300) U/L Urine Color ERLIN (YELLOW) Urine Appearance SLIGHTLY CLOUDY (CLEAR) Urine pH 5.0 (5-6) Ur Specific [place] 1.021 (1.005-1.025) Urine Protein 30 (Negative) Urine Ketones TRACE (NEGATIVE) Urine Blood MODERATE (0-5) Dequan/ul Urine Nitrite NEGATIVE (NEGATIVE) Urine Bilirubin NEGATIVE (NEGATIVE) Urine Urobilinogen 2 (0-1) mg/dL Ur Leukocyte Esterase TRACE (NEGATIVE) Urine WBC (Auto) 6-10 (0-5) /HPF Urine RBC (Auto) 0-2 (0-2) /HPF U Epithel Cells (Auto) RARE (FEW) /HPF Urine Bacteria (Auto) MODERATE (NEGATIVE) /HPF Urine Mucus (Auto) SLIGHT (NEGATIVE) /HPF Urine Culture Reflexed YES (NO) Urine Glucose NEGATIVE (NEGATIVE) mg/dL Urine HCG, Qual (Negative) - Progress Progress: improved, pain not gone completely, re-examined Progress Note: 12/08/20 15:26 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 There is no other significant acute intra-abdominal or intrapelvic findings. Medical decision making: I spoke with Dr. browning, the patient's primary care physician. I reviewed the patient history, condition, results of her lab work and CAT scan of the abdomen pelvis without contrast. Patient has what appears to me to be gallstone pancreatitis with a porcelain gallbladder. Dr. browning states that he wants the patient to be transferred to [facility] and to be evaluated by various exceptionalities teacher Dr. Power. She will likely need an MRCP, possible ERCP prior to a cholecystectomy. We do not have gastroenterology here at this facility. We have put a call into Dr. Power office at [phone]. In addition, we called the [facility] transfer center to also attempt to contact Dr. Power. 12/08/20 15:41 The [facility] transfer center called back. They contacted Dr. Power's office. Dr. Power does not accept phone consultations and he is not on-call for [facility]. Therefore we will attempt to contact Dr. Sathish Stoll who is on general surgery call for [facility] and attempt to see if we can plan to transfer to that facility under Dr. Sathish Stoll who would then consult gastroenterology tomorrow. If Dr. Stoll does not want to accept the patient in transfer or does not feel that the patient would be best served at [facility], we will contact a facility that has gastroenterology on-call and available. 12/08/20 16:52 There is no gastroenterologists available at either [facility] or [facility] in [facility]. I spoke with Dr. browning regarding this issue and he desires that I send the patient to [facility] in [place] for MRCP and ERCP by gastroenterology if is necessary. Patient will also have a general surgical consultation for cholecystectomy during that hospitalization. I spoke with [facility] hospitalist on site manager, Dr. Vega and the various exceptionalities teacher performing ERCPs, Dr. Reis. They accept the patient in transfer to their facility. They would like us to perform a Covid 19 test. The patient is likely going to need an ERCP urgently. I spoke with Cecelia Little and we are performing a binax now antigen test with no reflex. Counseled pt/family regarding: lab results, diagnosis, need for follow-up, rad results - Departure Departure Disposition: Transfer Clinical Impression: Acute gallstone pancreatitis, Porcelain gallbladder Condition: Stable Critical Care Time: No Referrals: GLORIA BROWNING MD [Primary Care Provider] -
[2020-12-08] MEDS ORDERED: Zofran 4 MG/2 ML VIAL ONE (14:04)
[2020-12-08] MEDS ORDERED: Sodium Chloride 0.9% 1000 ML 1,000 ML ONE (14:06)
[2020-12-08] MEDS ORDERED: Hydromorphone 1 mg/ml Injection ONE (14:06)
[2020-12-08 14:17] LABS: Absolute Neutrophil Ct (ANC) 8.07 (1.4-6.9); BASOPHIL % 0.2 % (0.0-0.4); Basophil (Absolute #) 0.02 (0-0.4); Eosinophil % 1.7 % (0.00-5.0); Eosinophil (Absolute #) 0.17 (0-0.5); Hematocrit 40.1 % (35-47); Hemoglobin 12.4 gm/dl (12.0-16.0); Lymphocyte (Absolute #) 1.41 (1.0-4.6); Lymphocytes % 13.8 % (24.0-44.0); Mean Corpuscular Hemoglobin 26.3 pg (26-32); Mean Corpuscular Hgb Concent. 30.9 g/dl (32-36); Mean Platelet Volume 9.7 fl (7.5-11.0); Monocyte (Absolute #) 0.55 (0.0-1.3); Monocytes % 5.4 % (0.0-12.0); Neutrophil % 78.9 % (36.0-66.0); Platelet Count 378 K/mm3 (150-450); Red Blood Count 4.72 M/mm3 (4.1-5.4); Red Cell Distribution Width 13.3 % (11.5-14.0); White Blood Count 10.2 K/mm3 (4.0-10.5)
[2020-12-08 14:25] LABS: Appearance SLIGHTLY CLOUDY (CLEAR); Bacteria MODERATE /HPF (NEGATIVE); Bilirubin NEGATIVE (NEGATIVE); Blood MODERATE Ery/ul (0-5); Epithelial Cells RARE /HPF (FEW); Glucose NEGATIVE (NEGATIVE); Ketones TRACE (NEGATIVE); Leukocyte Esterase TRACE (NEGATIVE); Mucus SLIGHT /HPF (NEGATIVE); Nitrite NEGATIVE (NEGATIVE); Protein,Urine Dip 30 (Negative); RBC 0-2 /HPF (0-2); Specific Gravity 1.021 (1.005-1.025); Urobilinogen 2 mg/dL (0-1)
[2020-12-08 14:30] LABS: ALBUMIN 4.5 g/dL (3.5-5.0); ALKALINE PHOSPHATASE 207 U/L (38-126); AMYLASE 416 U/L (30-110); ANION GAP 13.9 MEQ/L (5-15); BLOOD UREA NITROGEN 10 mg/dL (7-17); CHLORIDE 102 mmol/L (98-107); Calcium 9.6 mg/dL (8.4-10.2); Carbon Dioxide 25 mmol/L (22-30); Creatinine 1 0.88 mg/dL (0.52-1.04); EST GLOMERULAR FILTRATION RATE > 60.0 ML/MIN; Glucose 135 mg/dL (74-106); LIPASE 1492 U/L (23-300); Potassium 3.6 mmol/L (3.5-5.1); SGOT/AST 680 U/L (14-36); SGPT/ALT 731 U/L (0-35); SODIUM 137 mmol/L (137-145); Total Protein 7.9 g/dL (6.3-8.2)
--- NOTE | 2020-12-08 14:43 | XRAY ---
Indication: Abdomen pain and nausea. Multiple contiguous axial images obtained through the abdomen and pelvis without contrast. Comparison: None Lung bases demonstrates minimal left base subsegmental atelectasis/scarring. No infiltrate or effusion. Heart is not enlarged. Stomach is distended with food/fluid. Noncontrasted stomach and bowel loops appear nonobstructed. Normal appendix. There is mild diffuse scattered colonic fecal debris including rectum. No free fluid/air. Faint porcelain gallbladder. Spleen is enlarged measuring 14.4 cm. Remaining liver, gallbladder, pancreas, spleen, adrenal glands, kidneys, ureters, bladder, uterus, and aorta appear unremarkable for noncontrast exam. Osseous structures intact with minimal levoscoliosis. No ventral or inguinal hernias. Impression: 1. Porcelain gallbladder. 2. Incidental mild diffuse fecal stasis and splenomegaly. 3. Remaining CT abdomen/pelvis without contrast exam is negative..
[2020-12-08] MEDS ORDERED: Levofloxacin 500MG/100ML D5W 500 MG/100 ML BAG IV STA (15:40)
[2020-12-08 15:44] VITALS: O2SAT 99
[2020-12-08] MEDS ORDERED: Levofloxacin 500MG/100ML D5W 500 MG/100 ML BAG IV ONE (15:44)
[2020-12-08] MEDS ORDERED: Lactated Ringers 1,000 ML IV ONE ×2 (16:48→16:51)
[2020-12-08 17:37] LABS: COVID AG -BINAX NOW RAPID TEST NEGATIVE (NEGATIVE)
[2020-12-08 18:39] VITALS: BP 101/59; PULSE 94
== END 2020-12-08 19:00 ==
LOC: ED 13:15
DX: K85.10 Biliary acute pancreatitis without necrosis or infection (principal); K82.8 Other specified diseases of gallbladder
CPT/HCPCS: 36415; 74176; 80053; 81001; 82150; 83605; 83690; 84703; 85025; 87086; 96360; 96365; 96374; 96375; 99000; 99284; J1170; J1956; J2405